=== PATIENT | female | born 1980 | race Hispanic/Latino ===

== ENCOUNTER → 2024-11-03 | Outpatient (CLI) | payer BC | END | disposition home or self-care (01) | LOC: SHCH 13:11 | PROVIDERS: ATTEND Internal Medicine Cardiovascular Disease | DX: I73.9 Peripheral vascular disease, unspecified (principal); I87.2 Venous insufficiency (chronic) (peripheral); I87.1 Compression of vein; I87.8 Other specified disorders of veins | CPT/HCPCS: 93925; 93970 ==